=== PATIENT | female | born 1950 | race Two or more races ===

== ENCOUNTER 2020-03-19 06:19 | Day surgery (SDC) | payer MEDICAID ==
--- NOTE | 2020-03-15 15:06 | NUR ---
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
--- NOTE | 2020-03-16 16:24 | Opthalmology H&P ---
Ophthalmology H&P H&P Chief Complaint: decreased vision in right eye HPI Vision Affects Ability to: read, manage personal affairs Past Ocular History: retinal problems - PDR/ME OU HPI Narrative Blurry vision Exam Visual Acuity: OD Counting fingers OS 20/40 Tension: OD 16 OS 11 Eye Exam: normal OU: external exam, palpebral fissure-width, marginal reflex distance, levator function, corneas, anterior chambers; findings: lens - Mature cat. OD, fundus exam - PDR/ME OU, VIT. HEM OD Assessment/Plan Treatment Plan: cataract extraction w/ lens implant Goals of Treatment: improvement of vision, enhance quality of life Attestation Attestation The risks and benefits of the surgery as well as alternative procedures were explained to the patient in detail. Sebastian Gallagher MD Mar 16, 2020 16:24
--- NOTE | 2020-03-16 16:25 | Pre-Procedure Note/Attestation ---
Pre-Procedure Note/Attestation Complete Prior to Procedure Planned Procedure: right Procedure Narrative: Cataract extraction with IOL implant right eye Indications for Procedure Pre-Operative Diagnosis: Morgagnian cataract right eye Attestation I attest that I discussed the nature of the procedure; its benefits; risks and complications; and alternatives (and the risks and benefits of such alternatives), prior to the procedure, with the patient (or the patient's legal customer assistance representative). I attest that, if there was a reasonable possibility of needing a blood transfusion, the patient (or the patient's legal customer assistance representative) was given the [facility] standardized written summary, pursuant to the Juan Manuel Mike Blood Safety Act ([place] Health and Safety Code # 1645, as amended). I attest that I re-evaluated the patient just prior to the surgery and that there has been no change in the patient's H&P, except as documented below: Sebastian Gallagher MD Mar 16, 2020 16:25
[~2020-03-19] VITALS: Ht 152.4 cm; Wt 79.4 kg
[2020-03-19] VITALS (10 sets, daily range): BP systolic 122–161; BP diastolic 63–88
[~2020-03-19 06:19] MED LIST: ASPIRIN EC81 MG ORAL; AVAPRO150 MG ORAL; GLIPIZIDE5 MG ORAL; LANTUS SOL100 UNIT/1 SUBQ; OYSTER SHELL 51 EAC3 PO; SIMVASTATIN40 MG ORAL; Tobramycin Op Soln 0.3% 5ml RIGHT EYE ONE
[2020-03-19] MEDS ORDERED: Tobradex Opth Oint 3.5gm RIGHT EYE ONE (07:00)
[2020-03-19] MEDS ORDERED: Cyclopentolate 2% Opth Sol RIGHT EYE ONE (07:00)
[2020-03-19] MEDS ORDERED: Maxitrol Opth Oint 3.5gm ONE (07:00)
[2020-03-19] MEDS ORDERED: Akten 3.5% 1ml Btl RIGHT EYE ONE (07:00)
[2020-03-19] MEDS ORDERED: Tetracaine 0.5% Opth 4ml Soln RIGHT EYE ONE (07:00)
[2020-03-19] MEDS ORDERED: Tetracaine 0.5% Opth 4ml Soln ONE (07:00)
[2020-03-19] MEDS ORDERED: Diclofenac Sod 0.1% Op Soln RIGHT EYE ONE (07:00)
[2020-03-19] MEDS ORDERED: Pilocarpine 1% Opth 15ml Soln ONE (07:00)
[2020-03-19] MEDS ORDERED: prednisoLONE acetate 1% Opth Susp 1ml ONE (07:00)
[2020-03-19] MEDS ORDERED: Proparacaine 0.5% Opth Soln 15ml RIGHT EYE ONE (07:00)
[2020-03-19] MEDS: Phenylephrine 10% Opth Soln 5ml RIGHT EYE SCH ×3 (08:51→09:13)
[2020-03-19] MEDS: Tropicamide 1% Opth 15ml Soln RIGHT EYE SCH ×3 (08:51→09:10)
[2020-03-19] MEDS ORDERED: Sterile Water Irrig 1000ml IRRIG ONE (10:00)
[2020-03-19] MEDS ORDERED: NS Irrig 1000ml ONE (10:00)
[2020-03-19] MEDS ORDERED: LR 1000ml ONE (10:00)
[2020-03-19] MEDS ORDERED: Midazolam 2mg/2ml Inj ONE (10:09)
[2020-03-19] MEDS ORDERED: fentaNYL 100 mcg/2 mL IV ONE (10:09)
--- NOTE | 2020-03-19 10:27 | Anethesia Preoperative Eval ---
Anesthesia Pre-op PMH/ROS General Date of Evaluation: Mar 19, 2020 Time of Evaluation: 09:53 Anesthesiologist: daisy ASA Score: ASA 3 Mallampati Score Class I : Soft palate, uvula, fauces, pillars visible Class II: Soft palate, uvula, fauces visible Class III: Soft palate, base of uvula visible Class IV: Only hard plate visible Mallampati Classification: Class II Surgeon: davian Diagnosis: nuclear sclerotic cataract right eye Surgical Procedure: cataract extraction w/ iol right eye Anesthesia History: none Social History: smoking - nonsmoker Family History: no anesthesia problems Allergies: Coded Allergies: No Known Allergies (Unverified , 03/15/20) Medications: see eMAR Patient NPO?: Yes Past Medical History Cardiovascular: Reports: HTN, other - hypercholesterolemia Gastrointestinal/Genitourinary: Reports: other - kidney stones, Endocrine: Reports: DM HEENT: Reports: cataract (R) Anesthesia Pre-op Phys. Exam Physician Exam Last Vital Signs Date Time Temp Pulse Resp B/P (MAP) Pulse Ox O2 Delivery O2 Flow Rate FiO2 03/19/20 08:55 Room Air 03/19/20 07:47 96.6 61 14 161/88 100 Constitutional: NAD Neurologic: CN 2-12 intact Cardiovascular: RRR Respiratory: CTA Gastrointestinal: S/NT/ND Airway Exam Mallampati Score: Class II MO: limited Neck: short TMD: 2fb ROM: limited Anesthesia Pre-op A/P Labs Microbiology Date/Time Source Procedure Growth Status 03/16/20 10:05 Nasopharynx SARS-CoV-2 RdRp Gene Assay - Final Complete Chemistry Test 03/19/20 08:01 POC Whole Blood Glucose Pending Risk Assessment & Plan Assessment: asa3 Plan: mac Status Change Before Surgery: No Pre-Antibiotics Drug: Aggie Raman MD Mar 19, 2020 10:27
[2020-03-19] MEDS ORDERED: LR 1000ml 1,000 ML IVLG SCH (10:30)
[2020-03-19] MEDS ORDERED: DiphenhydrAMINE 50mg/ml Inj IVP PRN (10:30)
[2020-03-19] MEDS ORDERED: Labetalol 5mg/ml 20ml vial IV PRN (10:30)
[2020-03-19] MEDS ORDERED: Atropine Inj 1mg/10ml Syr IVP PRN (10:30)
[2020-03-19] MEDS ORDERED: Midazolam 2mg/2ml Inj IVP PRN (10:30)
[2020-03-19] MEDS ORDERED: fentaNYL 100 mcg/2 mL IV PRN (10:30)
[2020-03-19] MEDS ORDERED: EPINEPHrine 1mg/1ml Amp ONE (14:18)
[2020-03-19] MEDS ORDERED: BSS 15ml BTL ONE (14:19)
[2020-03-19] MEDS ORDERED: BSS 500ml btl ONE (14:19)
[2020-03-19] MEDS ORDERED: Sodium Hyaluronate 10 mg/ml 0.85ml ONE (14:19)
[2020-03-19] MEDS ORDERED: Povidone-Iodine 5% opth solution ONE (14:19)
--- NOTE | 2020-03-19 14:28 | Immediate Post-Op Evaluation ---
Immediate Post-Op Evalulation Immediate Post-Op Evalulation Procedure: cataract extraction w/iol right eye Date of Evaluation: Mar 19, 2020 Time of Evaluation: 11:17 IV Fluids: 550ml lr Blood Products: none Estimated Blood Loss: negligible Blood Pressure Systolic: 161 Blood Pressure Diastolic: 72 Pulse Rate: 77 Respiratory Rate: 18 O2 Sat by Pulse Oximetry: 99 Temperature (Fahrenheit): 97.2 Pain Score (1-10): 0 Nausea: No Vomiting: No Complications none Patient Status: awake, reacts, patent Hydration Status: adequate Drug: Aggie Raman MD Mar 19, 2020 14:28
--- NOTE | 2020-03-19 14:30 | 48 Hour Post Anesthesia Eval ---
Post Anesthesia Evaluation Procedure: cataract extraction w/iol right eye Date of Evaluation: Mar 19, 2020 Time of Evaluation: 11:19 Blood Pressure Systolic: 156 0: 74 Pulse Rate: 75 Respiratory Rate: 18 Temperature (Fahrenheit): 97.2 O2 Sat by Pulse Oximetry: 99 Airway: patent Nausea: No Vomiting: No Pain Intensity: 0 Hydration Status: adequate Cardiopulmonary Status: stable Mental Status/LOC: patient returned to baseline Post-Anesthesia Complications: none Follow-up care needed: N/A Aggie Giordano MD Mar 19, 2020 14:30
--- NOTE | 2020-03-20 10:59 | Brief Operative Note ---
Immediate Post Operative Note Operative Note Chief Complaint: Blurry Vision Pre-op Diagnosis: Morgagnian cataract right eye Procedure: Cataract extraction with IOL implant right eye Post-op Diagnosis: Pseudo OD Findings: consistent w/pre-op dx studies Surgeon: Sebastian Gallagher MD Anesthesiologist: Aggie Peña MD Anesthesia: MAC Specimen: none Complications: none Condition: stable Fluids: LR Estimated Blood Loss: none Drains: none Implant(s) used?: Yes - IOL-OD Sebastian Gallagher MD Mar 20, 2020 10:59
--- NOTE | 2020-03-20 11:02 | Operative Note - PDOC ---
Operative Note Operative Note Date of Operation/Procedure: Mar 19, 2020 Chief Complaint: Blurry Vision Pre-op Diagnosis: Morgagnian cataract right eye Procedure: Cataract extraction with IOL implant right eye Post-op Diagnosis: Pseudo OD Operative Findings: consistent w/pre-op dx studies Surgeon: Sebastian Gallagher MD Anesthesiologist: Aggie Peña MD Anesthesia: MAC Specimen: none Complications: none Condition: stable Fluids: LR Estimated Blood Loss: none Drains: none Implant(s) used?: Yes - IOL-OD Indications for Procedure Morgagnian cataract right eye Description of Procedure This patient has been complaining of a visually significant cataract in the right eye with the best corrected visual acuity of counting fingers. The patient complains of difficulties with glare in performing activities of daily living and wants to manage personal affairs with comfort and accuracy and see well enough to move with safety at home and outdoors independently. The risks, benefits and alternatives of the procedure were discussed with the patient in the office prior to scheduling surgery. All questions from the patient were answered after the surgical procedure was explained in detail. The risks of the procedure as explained to the patient include, but are not limited to, pain, infection, bleeding, loss of vision, retinal detachment, need for further surgery, loss of lens nucleus, double vision, etc. Alternative procedures were discussed which include, to do nothing or seek a second opinion. Informed consent for this procedure was obtained from the patient. The patient was referred to a primary care physician for a cardiopulmonary clearance prior to surgery, after proper evaluation was done patient was properly scheduled for outpatient surgery. The patient was brought to the operating room where the anesthesiologist establi shed I.V. lines and cardiac monitoring leads. Mild intravenous sedation was administered. The patient was then prepared with a 5% solution of povidone- iodine to the conjunctival fornix and lashes, and a 5% solution of povidone- iodine to the lids and periorbital skin. The patient was then draped in the usual sterile fashion. A lid speculum was then placed in the operative eye. A keratome blade was then used to create a biplanar incision into the anterior chamber. Viscoelastics was then instilled into the anterior chamber. A capsulorrhexis was then fashioned with an utrata forceps. The lens nucleus was hydrodissected and hydrodelineated with a G 27 Cannula. Paracentesis incision was made at 3 o'clock with sharp blade. The phacoemulsification unit, after satnam ng properly adjusted and tested, was then used to emulsify the nucleus followed by aspiration and irrigation of residual cortical material. Healon was then instilled into the anterior chamber. The corneal wound was then enlarged to the size of the optic with the westley keratome blade. The intraocular lens was then inspected for right power and size and thought to be satisfactory. Then the lens was gently placed in the capsular bag. Positioning within the capsular bag was confirmed by direct visualization. Optic centration was accomplished with a Sinskey hook. Viscoelastics was removed from the anterior chamber using the irrigation and aspiration unit. The corneal wound was then tested for leaks and none were found. The lid speculum were then removed. Sponge and needle counts were correct. An eye patch and shield were placed over the operative eye. The patient was taken to the recovery room in stable condition. There were no complications. The patient tolerated the procedure well. The patient was then transferred to the ambulatory surgery unit in stable and satisfactory condition, was given detailed written instructions and asked to follow up in the office the next day. Sebastian Gallagher MD Mar 20, 2020 11:02
== END 2020-03-19 12:45 | disposition home or self-care (01) ==
LOC: SUR 06:19
DX: H25.21 Age-related cataract, morgagnian type, right eye (principal); I10 Essential (primary) hypertension; E78.00 Pure hypercholesterolemia, unspecified; E11.9 Type 2 diabetes mellitus without complications; Z87.442 Personal history of urinary calculi
CPT/HCPCS: 66984; 82962; 94003; J0171; J0360; J1100; J2250; J2405; J3010; J3370; J7120; U0002; V2632; Z7512; 94150